=== PATIENT | male | born 1980 | race Caucasian/White ===

== ENCOUNTER 2024-03-24 22:29 | Emergency (ER) | payer OTHER ==
[~2024-03-24] VITALS: Ht 172.7 cm; Wt 70.0 kg
[2024-03-24 23:36] LABS: BASOPHILS % (AUTO) 0.4 % (0.0-2.0); EOSINOPHILS % (AUTO) 1.4 % (1.0-6.0); HEMATOCRIT 39.7 % (41-53); HEMOGLOBIN 13.1 g/dL (13.5-17.5); LYMPHOCYTES % (AUTO) 8.1 % (22.0-44.0); MEAN CORPUSCULAR HEMOGLOBIN 30.2 pg (26.0-34.0); MEAN CORPUSCULAR VOLUME 92 fL (80-100); MONOCYTES % (AUTO) 7.4 % (2.0-9.0); NEUTROPHILS # (AUTO) 10.6 K/uL (1.8-7.7); NEUTROPHILS % (AUTO) 82.7 % (40.0-70.0); PLATELET COUNT (AUTO) 402 K/uL (150-450); RED BLOOD CELL COUNT(AUTO) 4.32 MIL/uL (4.50-5.90); RED CELL DISTRIBUTION WIDTH 14.5 % (11.5-14.5); WHITE BLOOD COUNT (AUTO) 12.9 K/uL (4.5-11.0)
[2024-03-24 23:45] LABS: CALCIUM, TOTAL 8.7 mg/dL (8.8-10.5); CREATININE 1.78 mg/dL (0.60-1.30)
[2024-03-24 23:48] LABS: POTASSIUM 2.9 mmol/L (3.5-5.1)
[2024-03-25] MEDS: POTASSIUM CHLORIDE 20 MEQ ER TABLET PO ONE (02:16)
[2024-03-25 05:30] VITALS: BP 124/68; PULSE 71; RESP 12; TEMP 98.3
== END 2024-03-25 06:18 | disposition home or self-care (01) ==
LOC: EMS 22:36
DX: T40.411A Poisoning by fentanyl or fentanyl analogs, accidental (unintentional), initial encounter (principal); R11.11 Vomiting without nausea; Y92.89 Other specified places as the place of occurrence of the external cause
CPT/HCPCS: 80048; 85025; 99285